=== PATIENT | male | born 1955 | race Caucasian/White ===

== ENCOUNTER 2017-12-27 23:48 | Emergency (ER) | payer BC, OTHER ==
[2017-12-28] MEDS ORDERED: HYDROcodone/APAP 10-325MG 1 EACH TAB PO ONE (00:29)
--- NOTE | 2017-12-28 01:43 | ED ---
Psych HPI - General Chief Complaint: Psychiatric Symptoms Stated Complaint: Mental Healh Time Seen by Provider: 12/28/17 00:05 Source: patient, police Mode of arrival: ambulatory - History of Present Illness Initial Comments: 62-year-old male patient presents to the emergency department today for evaluation of increased agitation and suicidal ideation. Patient had been drinking alcohol today. Made threats to his family and 2 officers that he was sick of everything and wanted to kill himself. Patient has been dealing with chronic pain for many years, doesn't feel like he is getting adequate treatment from his physician's due to the "opiate crisis". Patient stated "If I were a stupid man I would just shoot up all the doctors and there offices until someone would help me". He stated, "I can't take the pain anymore, the norco doesn't help me, its like taking aspirin". Officers stated that when speaking to him at his home he did say that he was suicidal because he couldn't take the pain anymore. He reported it to the officers that he had a secret that he isn' t keeping for the last 5 years and his family doesn't even know about it has been weighing on him. They state that he was very emotional and would start to cry during this questioning. Patient states he has had depression for many years and quit taking his medication approximately one year ago. Patient reports chronic low back pain. Denies any new or changing symptoms. He denies any hallucinations. He denies any illicit drug use. Patient denies any recent rash, fever, chills, shortness breath, chest pain, abdominal pain, nausea , vomiting, diarrhea, constipation, back pain, numbness, tingling, dizziness, weakness, hematuria, dysuria, urinary urgency, urinary frequency, headache, visual changes, or any other complaints. - Related Data Allergies Allergy/AdvReac Type Severity Reaction Status Date / Time bee venom protein (honey bee) AdvReac Anaphylaxis Verified 12/27/17 23:59 Review of Systems ROS Statement: Those systems with pertinent positive or pertinent negative responses have been documented in the HPI. ROS Other: All systems not noted in ROS Statement are negative. Past Medical History Past Medical History: Hypertension, Thyroid Disorder History of Any Multi-Drug Resistant Organisms: None Reported Past Surgical History: Appendectomy, Hernia Repair Additional Past Surgical History / Comment(s): 10 back on L4 and 5, one neck surgery. Past Psychological History: Depression Smoking Status: Current every day smoker Past Alcohol Use History: None Reported, Abuse, Daily Past Drug Use History: None Reported General Exam Limitations: no limitations General appearance: alert, in no apparent distress, other (This is a well- developed, well-nourished adult male patient. He is quite agitated at this time. Vital signs upon presentation are temperature 98.5F, pulse 73, respirations 18, blood pressure 172/97, pulse ox 98% on room air.) Eye exam: Present: normal appearance, PERRL, EOMI. Absent: scleral icterus, conjunctival injection, periorbital swelling ENT exam: Present: normal exam, normal oropharynx, mucous membranes moist Neck exam: Present: normal inspection. Absent: tenderness, meningismus, lymphadenopathy Respiratory exam: Present: normal lung sounds bilaterally. Absent: respiratory distress, wheezes, rales, rhonchi, stridor Cardiovascular Exam: Present: regular rate, normal rhythm, normal heart sounds. Absent: systolic murmur, diastolic murmur, rubs, gallop, clicks Neurological exam: Present: alert, oriented X3, CN II-XII intact Psychiatric exam: Present: agitated, homicidal ideation, suicidal ideation Skin exam: Present: warm, dry, intact, normal color. Absent: rash Course Vital Signs 12/27/17 12/28/17 23:52 03:23 Temperature 98.5 F 98.1 F Pulse Rate 73 81 Respiratory 18 20 Rate Blood Pressure 172/97 168/87 O2 Sat by Pulse 98 96 Oximetry Medical Decision Making - Medical Decision Making 62-year-old male patient presented to the emergency department today for evaluation of increased anger and depression related to chronic pain issues. Patient had made threats to his family and officers that he wanted to end it all. Physical examination was unremarkable. Patient was seen and evaluated by emergency psychiatric services. It is felt at this time that he would not benefit from inpatient admission and in fact that he would worsen due to not being able to have his pain medications and unsupportive beds. Patient has been given outpatient referrals for mental health services. He is instructed to follow-up as soon as possible. Return parameters discussed in detail. Patient verbalizes understanding and agrees with this plan. Disposition Clinical Impression: Anger reaction, Depression, Chronic pain Disposition: HOME SELF-CARE Condition: Good Instructions: Chronic Pain (ED), Depression (ED), Suicide Prevention for Adults (ED) Additional Instructions: Follow-up outpatient with mental health services. Return here immediately for any new, worsening, or concerning symptoms. Is patient prescribed a controlled substance at d/c from ED?: No Referrals: Yesica Harden MD [Primary Care Provider] - 1-2 days Time of Disposition: 03:18
[2017-12-28 03:24] VITALS: BP 168/87; PULSE 81; RESP 20; TEMP 98.1
== END 2017-12-28 03:24 | disposition home or self-care (01) ==
LOC: EC 23:48
DX: F32.9 Major depressive disorder, single episode, unspecified (principal); R45.4 Irritability and anger; M54.5 Low back pain; G89.29 Other chronic pain; F17.200 Nicotine dependence, unspecified, uncomplicated; Z91.030 Bee allergy status
CPT/HCPCS: 82075; 99284